=== PATIENT | male | born 1955 | race Caucasian/White ===

== ENCOUNTER 2020-09-21 21:57 | Emergency (ER) | payer OTHER ==
[2020-09-21] MEDS ORDERED: Ketorolac Tromethamine 30 MG/ML VIAL ONE (22:26)
--- NOTE | 2020-09-22 07:17 | RAD ---
RIGHT ELBOW 2 VIEWS: Date: 09/21/2020 HISTORY: Fall with elbow injury. FINDINGS: There are arthritic changes of the elbow. There are no signs of any fracture or dislocation. No joint effusion. IMPRESSION: No acute injury. POS: ABHAY
== END 2020-09-21 23:00 | disposition home or self-care (01) ==
LOC: MADERS 21:57
DX: S50.01XA Contusion of right elbow, initial encounter (principal); E78.5 Hyperlipidemia, unspecified; E78.00 Pure hypercholesterolemia, unspecified; I10 Essential (primary) hypertension; Z79.899 Other long term (current) drug therapy; W17.89XA Other fall from one level to another, initial encounter
CPT/HCPCS: J1885

== ENCOUNTER 2023-08-14 09:53 | Emergency (ER) | payer OTHER ==
[2023-08-14] MEDS ORDERED: Acetaminophen 500 MG TAB ONE (10:45)
[2023-08-14] MEDS ORDERED: Ipratropium/Albuterol 3 ML NEB ONE (11:40)
[2023-08-14] MEDS ORDERED: predniSONE 20 MG TAB ONE (11:52)
== END 2023-08-14 12:15 | disposition home or self-care (01) ==
LOC: MADERS 09:53
DX: J20.9 Acute bronchitis, unspecified (principal); J01.90 Acute sinusitis, unspecified; E78.5 Hyperlipidemia, unspecified; I10 Essential (primary) hypertension; F17.200 Nicotine dependence, unspecified, uncomplicated; Z20.822 Contact with and (suspected) exposure to COVID-19
CPT/HCPCS: 71046; 87635; 87804; J7512; J7620

== ENCOUNTER 2025-07-28 20:00 | Emergency (ER) | payer MEDICARE ==
[2025-07-28] MEDS ORDERED: Acetaminophen 325 MG TAB ONE (20:27)
== END 2025-07-28 21:30 | disposition home or self-care (01) ==
LOC: MADERS 20:00
DX: R51.9 Headache, unspecified (principal); S43.422A Sprain of left rotator cuff capsule, initial encounter; I10 Essential (primary) hypertension; E78.5 Hyperlipidemia, unspecified; N40.0 Benign prostatic hyperplasia without lower urinary tract symptoms; L40.9 Psoriasis, unspecified; F17.210 Nicotine dependence, cigarettes, uncomplicated; R29.700 NIHSS score 0; Z79.899 Other long term (current) drug therapy; W11.XXXA Fall on and from ladder, initial encounter
CPT/HCPCS: 70450